=== PATIENT | male | born 1945 | race Caucasian/White ===

== ENCOUNTER 2022-07-05 15:28 | Inpatient (IN) ==
--- NOTE | 2022-07-05 17:11 | XRay Report ---
XR chest 1V not portable CLINICAL HISTORY: Sepsis TECHNIQUE: Single frontal radiograph of the chest was obtained. Comparison: None available at the time of this dictation. FINDINGS: A port catheter is seen. The cardiomediastinal silhouette is normal. The lungs are clear. No evidence of pleural effusion or pneumothorax. IMPRESSION: No acute chest disease. ACT 112: Negative or not required by law. Electronically signed by: Michelet Lomeli M.D. 07/05/2022 5:10 PM
[2022-07-05 18:30] LABS: Basophils # (auto) 0.05 K/uL (0-0.2); Basophils % (auto) 0.3 %; Eosinophils # (auto) 0.01 K/uL (0-0.50); Eosinophils % (auto) 0.1 %; Hematocrit (blood only) 27.3 % (42.0-52.0); Hemoglobin 9.1 g/dl (14.0-18.0); Immature Granulocytes # (auto) 0.28 K/uL (0.01-0.20); Immature Granulocytes % (auto) 1.7 %; Lymphocytes # (auto) 1.05 K/uL (1.2-3.4); Lymphocytes % (auto) 6.3 %; Mean Corpuscular Hemoglobin 29.6 pg (25.0-34.0); Mean Corpuscular Hgb Conc 33.3 g/dL (32.0-36.0); Mean Corpuscular Volume 88.9 fL (80.0-100.0); Mean Platelet Volume 11.4 fL (9.4-12.4); Monocytes # (auto) 1.01 K/uL (0.11-0.59); Monocytes % (auto) 6.1 %; Neutrophils # (auto) 14.29 K/uL (1.40-6.50); Neutrophils % (auto) 85.5 %; Platelet Count 134 K/uL (130-400); RDW Standard Deviation 51.7 fL (36.4-46.3); Red Blood Count 3.07 M/uL (4.70-6.10); White Blood Count 16.69 K/ul (4.8-10.8)
[2022-07-05 18:47] LABS: Alanine Aminotransferase 150 U/L (7-52); Albumin Globulin Ratio 1.1 (0.9-2); Albumin Level 3.8 gm/dl (3.4-5.0); Alkaline Phosphatase 356 U/L (34-104); Anion Gap 10 (3-11); Aspartate Aminotransferase 126 U/L (13-39); BUN Creatinine Ratio 31.9 (10-20); Bilirubin,Total 0.7 mg/dl (0.2-1.0); Blood Urea Nitrogen 52 mg/dl (6-23); Calcium 9.7 mg/dl (8.6-10.3); Carbon Dioxide 24 mmol/L (21-32); Chloride 99 mmol/L (98-107); Est GFR (African American) 46.7 ml/min; Est GFR (Non-African American) 40.3 ml/min; Globulin 3.5 gm/dl (2.5-4.0); Glucose 109 mg/dl (70-99(Fasting)); Magnesium 2.1 mg/dl (1.7-2.4); Sodium 133 mmol/L (136-145); Total Protein 7.3 gm/dl (6.0-8.3)
[2022-07-05] MEDS ORDERED: SODIUM CHLORIDE 0.9% 1000ML 1,000 ML IV SCH (19:00)
[2022-07-05] MEDS ORDERED: cefTRIAXone SODIUM 2,000 MG/70 ML BAG IV STA (19:00)
[2022-07-05] MEDS ORDERED: SODIUM CHLORIDE 0.9% 1000ML 1,000 ML IV ONE ×2 (19:00→19:42)
--- NOTE | 2022-07-05 19:28 | Emergency Department Note ---
Impression & Plan Cellulitis, periorbital, Leukocytosis ED Provider Note INFORMANT: Patient ED PROVIDER(S): Edgar Fritz MD CHIEF COMPLAINT: Eye infection PLAN: Disposition: Admitted Condition: Good Outpatient prescription management: none Referral: None MEDICAL DECISION MAKING: Patient presented because of concerns for eye infection. He was sent from ophthalmology. Patient was evaluated. Clinically he has periorbital cellulitis on the right side. Blood work revealed significant leukocytosis. He has a mild elevation of lactate that was done via protocol. Patient was mildly ta chycardic. He was started on IV Rocephin after blood cultures were done. Sepsis fluids were initiated. Patient also was started on IV vancomycin. CT imaging was performed and did not reveal findings concerning for postseptal cellulitis. Patient also had sinusitis. Further management in the hospital will be necessary. Consultation was made with the [facility] service. Patient was evaluated in the ER and admitted for further management. After review of the information above and other included data, I feel the patient requires further management in the hospital Triage Nursing notes reviewed and agree them. Vital Signs: reviewed and remarkable for borderline low blood pressure Prior /Outside records reviewed: none Differential diagnosis: Cellulitis, abscess, MRSA infection, DVT, necrotizing fasciitis, dermatitis, drug eruption, allergic reaction, as well as other pathologies. Diagnostics, as interpreted by me: ECG: Twelve-lead ECG reveals sinus tachycardia [address] elevation or depression. No PACs or PVCs. Cardiac Monitoring: Cardiac monitoring ordered by me: The patient was placed on continuous cardiac monitoring and observed. It revealed a normal sinus rhythm at 99 beats per minute without ectopy or evidence of dysrhythmia. Medical decision rules: none Imaging studies: Chest x-ray. Findings: A chest x-ray was performed and revealed no pneumothorax, effusion, infiltrate, pulmonary edema, free air under the diaphragm, or wide mediastinum. Impression: No acute disease. CT of the orbits reveals inflammatory change concerning for periorbital cellulitis as well as sinusitis. I refer you to the EMR for further details. HPI: The patient is a 77year old male who presents to the Emergency Room with complaints of right eye infection. This started about 3 to 4 days ago and is worsening. The patient also notes the following associated symptoms, swelling and discomfort around the right eye.He has some blurry vision as well. The patient has taken no medication for relieving factors. Current pain is rated as 0/10. Patient went to ophthalmology and was referred to the ER by Dr. Snowden. Patient has a history of sinus cancer that is in remission. He also notes a history of sinus surgery. He also is undergoing chemotherapy for penile cancer. Pt denies LOC, headache, fevers, chills, diaphoresis, neck pain, chest pain, breathing difficulties, nausea, vomiting, abdominal pain, back pain, melena, weakness, lymphadenopathy, or other complaints. PAST MEDICAL HISTORY: See Below, sinus cancer, penile cancer PAST SURGICAL HISTORY: Port, sinus surgery, see below SOCIAL HISTORY: See Below, retired HOME MEDICATIONS: See Below ALLERGIES: See Below VITALS: See Below PHYSICAL EXAMINATION: GENERAL: Awake, alert, well-appearing, in no distress HENT: Normocephalic, atraumatic. Oropharynx unremarkable. There is mild edema and redness surrounding the right eye. No crepitus. EYES: Sclera non-icteric. Globe and cornea appear normal bilaterally. There is some mild conjunctival erythema on the right side. NECK: Inspection normal. Non-tender. Supple. No nuchal rigidity. FROM. No masses. RESPIRATORY: Clear to auscultation. No wheezes. No rales. Normal respiratory e ffort. CARDIAC: Borderline tachycardic rate. Normal rhythm. No murmurs. No rubs. Extremities warm and well perfused. Pulses equal. No JVD. GI: Soft, non-distended. No tenderness to palpation. No rebound or guarding. No masses. RECTAL: Deferred. MUSCULOSKELETAL: Atraumatic. Chest examination reveals no tenderness. Mediport in the right upper chest. The back is symmetrical on inspection without obvious abnormality. There is no CVA tenderness to palpation. No joint edema. LOWER EXTREMITIES: Calves are equal size bilaterally and non-tender. No edema. No discoloration. NEURO: Normal sensorium. No sensory or motor deficits noted. SKIN: No rash or jaundice noted. Past Med/Surg History Medical History (Updated 07/06/22 @ 13:46 by Boo Le MD) Cancer History of venous thromboembolism Hypertension Surgical History (Updated 07/06/22 @ 00:57 by Kacie Gomez DO) History of pelvic surgery Family History (Updated 07/06/22 @ 00:57 by Kacie M Jason, DO) Other Family history non-contributory Social History Smoking Status: Former smoker Second Hand Exposure: No; Hx Alcohol Use: No Hx Substance Use: No Preferred Language: Nigerian Communication Ability: Effective Tissue Inserter Required: No Beliefs That Will Affect Care: None Current Living Situation: Alone Feels Safe at Home: Yes Safety Concerns: Feels Safe At This Time Assistive Devices: Cane, Glasses and Walker Allergies Allergies Allergy/AdvReac Type Severity Reaction Status Date / Time No Known Allergies Allergy Verified 07/05/22 21:43 Home Meds Home Medications Medication Instructions Recorded Confirmed apixaban 5 mg tablet (Eliquis) 5 mg PO BID 07/05/22 07/05/22 aspirin 81 mg tablet,delayed 81 mg PO DAILY 07/05/22 07/05/22 release clindamycin HCl 300 mg capsule 300 mg PO TID 07/05/22 07/05/22 dexamethasone 4 mg tablet 8 mg PO UD 07/05/22 07/05/22 fluticasone 250 mcg-salmeterol 50 1 inh inhalation BID 07/05/22 07/05/22 mcg/dose blistr powdr for inhalation (Wixela Inhub) lisinopril 2.5 mg tablet 2.5 mg PO QAM 07/05/22 07/05/22 loratadine 10 mg tablet (Claritin) 10 mg PO DAILY 07/05/22 07/05/22 montelukast 10 mg tablet 10 mg PO HS 07/05/22 07/05/22 multivitamin 1 tab PO DAILY 07/05/22 07/05/22 omeprazole 20 mg capsule,delayed 20 mg PO DAILY 07/05/22 07/05/22 release potassium chloride 20 mEq 20 meq PO DAILY 07/05/22 07/05/22 tablet,extended release vit C 250 mg-vit E 90 mg-zinc 40 1 tab PO BID 07/05/22 07/05/22 mg-copper 1 [id number] capsule (PreserVision AREDS-2) Results & Data (ED) Vital Signs Vital Signs - 24 hr 07/05/22 15:43 07/05/22 19:34 Temperature 36.6 C Temperature Source Temporal Artery Scan Pulse Rate 82 108 H Pulse Rhythm Regular Respiratory Rate 18 18 Blood Pressure 101/65 Blood Pressure Mean 77 Pulse Oximetry 97 97 Oxygen Delivery Method Room Air Room Air Sepsis Recent Fever Within 48 Hours No Sepsis New/Unexplained Change in Mental Status No Sepsis Action Taken by Nursing No Action Required Laboratory Data 07/05/22 18:13 07/05/22 18:13 Lab Results 07/05/22 07/05/22 07/05/22 Range/Units 18:13 18:13 18:13 WBC 16.69 H (4.8-10.8) K/ul RBC 3.07 L (4.70-6.10) M/uL Hgb 9.1 L (14.0-18.0) g/dl Hct 27.3 L (42.0-52.0) % MCV 88.9 (80.0-100.0) fL MCH 29.6 (25.0-34.0) pg MCHC 33.3 (32.0-36.0) g/dL RDW Std Deviation 51.7 H (36.4-46.3) fL RDW Coeff of Bebe 16.0 H (11.5-14.5) % Plt Count 134 (130-400) K/uL MPV 11.4 (9.4-12.4) fL Immature Gran % (Auto) 1.7 % Neut % (Auto) 85.5 % Lymph % (Auto) 6.3 % [place] % (Auto) 6.1 % Eos % (Auto) 0.1 % Baso % (Auto) 0.3 % Neut # (Auto) 14.29 H (1.40-6.50) K/uL Lymph # (Auto) 1.05 L (1.2-3.4) K/uL [place] # (Auto) 1.01 H (0.11-0.59) K/uL Eos # (Auto) 0.01 (0-0.50) K/uL Baso # (Auto) 0.05 (0-0.2) K/uL Immature Gran # (Auto) 0.28 H (0.01-0.20) K/uL PT 12.6 H (9.0-12.0) Seconds INR 1.2 H (0.9-1.1) APTT 53.9 H* (21.0-31.0) Seconds PTT Ratio 2.0 Sodium 133 L (136-145) mmol/L Potassium 5.0 (3.5-5.1) mmol/L Chloride 99 (98-107) mmol/L Carbon Dioxide 24 (21-32) mmol/L Anion Gap 10 (3-11) BUN 52 H (6-23) mg/dl Creatinine 1.63 H (0.6-1.4) mg/dl Est Cr Clr Drug Dosing Not Reportable Est GFR ( Amer) 46.7 ml/min Est GFR (Non-Af Amer) 40.3 ml/min BUN/Creatinine Ratio 31.9 H (10-20) Glucose 109 H (70-99(Fasting)) mg/dl Lactate (0.4-2.0) mmol/L Calcium 9.7 (8.6-10.3) mg/dl Magnesium 2.1 (1.7-2.4) mg/dl Total Bilirubin 0.7 (0.2-1.0) mg/dl AST 126 H (13-39) U/L ALT 150 H (7-52) U/L Alkaline Phosphatase 356 H (34-104) U/L Total Protein 7.3 (6.0-8.3) gm/dl Albumin 3.8 (3.4-5.0) gm/dl Globulin 3.5 (2.5-4.0) gm/dl Albumin/Globulin Ratio 1.1 (0.9-2) Procalcitonin (0-0.5) ng/ml SARS-CoV-2, RNA, NAAT (NEGATIVE) 07/05/22 07/05/22 07/05/22 Range/Units 18:13 18:13 20:08 WBC (4.8-10.8) K/ul RBC (4.70-6.10) M/uL Hgb (14.0-18.0) g/dl Hct (42.0-52.0) % MCV (80.0-100.0) fL MCH (25.0-34.0) pg MCHC (32.0-36.0) g/dL RDW Std Deviation (36.4-46.3) fL RDW Coeff of Bebe (11.5-14.5) % Plt Count (130-400) K/uL MPV (9.4-12.4) fL Immature Gran % (Auto) % Neut % (Auto) % Lymph % (Auto) % [place] % (Auto) % Eos % (Auto) % Baso % (Auto) % Neut # (Auto) (1.40-6.50) K/uL Lymph # (Auto) (1.2-3.4) K/uL [place] # (Auto) (0.11-0.59) K/uL Eos # (Auto) (0-0.50) K/uL Baso # (Auto) (0-0.2) K/uL Immature Gran # (Auto) (0.01-0.20) K/uL PT (9.0-12.0) Seconds INR (0.9-1.1) APTT (21.0-31.0) Seconds PTT Ratio Sodium (136-145) mmol/L Potassium (3.5-5.1) mmol/L Chloride (98-107) mmol/L Carbon Dioxide (21-32) mmol/L Anion Gap (3-11) BUN (6-23) mg/dl Creatinine (0.6-1.4) mg/dl Est Cr Clr Drug Dosing Est GFR ( Amer) ml/min Est GFR (Non-Af Amer) ml/min BUN/Creatinine Ratio (10-20) Glucose (70-99(Fasting)) mg/dl Lactate 2.2 H* 1.5 (0.4-2.0) mmol/L Calcium (8.6-10.3) mg/dl Magnesium (1.7-2.4) mg/dl Total Bilirubin (0.2-1.0) mg/dl AST (13-39) U/L ALT (7-52) U/L Alkaline Phosphatase (34-104) U/L Total Protein (6.0-8.3) gm/dl Albumin (3.4-5.0) gm/dl Globulin (2.5-4.0) gm/dl Albumin/Globulin Ratio (0.9-2) Procalcitonin 0.59 H (0-0.5) ng/ml SARS-CoV-2, RNA, NAAT (NEGATIVE) 07/05/22 Range/Units 21:15 WBC (4.8-10.8) K/ul RBC (4.70-6.10) M/uL Hgb (14.0-18.0) g/dl Hct (42.0-52.0) % MCV (80.0-100.0) fL MCH (25.0-34.0) pg MCHC (32.0-36.0) g/dL RDW Std Deviation (36.4-46.3) fL RDW Coeff of Bebe (11.5-14.5) % Plt Count (130-400) K/uL MPV (9.4-12.4) fL Immature Gran % (Auto) % Neut % (Auto) % Lymph % (Auto) % [place] % (Auto) % Eos % (Auto) % Baso % (Auto) % Neut # (Auto) (1.40-6.50) K/uL Lymph # (Auto) (1.2-3.4) K/uL [place] # (Auto) (0.11-0.59) K/uL Eos # (Auto) (0-0.50) K/uL Baso # (Auto) (0-0.2) K/uL Immature Gran # (Auto) (0.01-0.20) K/uL PT (9.0-12.0) Seconds INR (0.9-1.1) APTT (21.0-31.0) Seconds PTT Ratio Sodium (136-145) mmol/L Potassium (3.5-5.1) mmol/L Chloride (98-107) mmol/L Carbon Dioxide (21-32) mmol/L Anion Gap (3-11) BUN (6-23) mg/dl Creatinine (0.6-1.4) mg/dl Est Cr Clr Drug Dosing Est GFR ( Amer) ml/min Est GFR (Non-Af Amer) ml/min BUN/Creatinine Ratio (10-20) Glucose (70-99(Fasting)) mg/dl Lactate (0.4-2.0) mmol/L Calcium (8.6-10.3) mg/dl Magnesium (1.7-2.4) mg/dl Total Bilirubin (0.2-1.0) mg/dl AST (13-39) U/L ALT (7-52) U/L Alkaline Phosphatase (34-104) U/L Total Protein (6.0-8.3) gm/dl Albumin (3.4-5.0) gm/dl Globulin (2.5-4.0) gm/dl Albumin/Globulin Ratio (0.9-2) Procalcitonin (0-0.5) ng/ml SARS-CoV-2, RNA, NAAT NEGATIVE (NEGATIVE) Administered Medications Acetaminophen (Acetaminophen 325 Mg Tab) 650 mg PO Q4H PRN PRN Reason: Pain or Fever Stop: 08/04/22 23:12 Last Admin: 07/07/22 07:50 Dose: 650 mg Documented By: Admin: 07/06/22 22:55 Dose: 650 mg Documented By: Admin: 07/06/22 15:51 Dose: 650 mg Documented By: Admin: 07/06/22 04:33 Dose: 650 mg Documented By: ROBERTA Apixaban (Apixaban 5 Mg Tablet) 5 mg PO BID COUNT INCLUDES THE [facility] Stop: 08/05/22 08:59 Last Admin: 07/07/22 07:49 Dose: 5 mg Documented By: Admin: 07/06/22 21:36 Dose: 5 mg Documented By: Admin: 07/06/22 09:29 Dose: 5 mg Documented By: GILLES Aspirin (Aspirin 81 Mg Ectab) 81 mg PO DAILY COUNT INCLUDES THE [facility] Stop: 08/05/22 08:59 Last Admin: 07/07/22 07:49 Dose: 81 mg Documented By: Admin: 07/06/22 09:29 Dose: 81 mg Documented By: GILLES Atorvastatin Calcium (Atorvastatin 10 Mg Tab) 5 mg PO HS COUNT INCLUDES THE [facility] Stop: 08/05/22 20:59 Last Admin: 07/06/22 21:36 Dose: 5 mg Documented By: ROBERTA Ceftriaxone Sodium 1,000 mg/ (Dextrose) 50 mls @ 100 mls/hr IV Q24H COUNT INCLUDES THE [facility]; Protocol Stop: 07/13/22 19:59 Last Infusion: 07/06/22 23:30 Dose: 0 mls/hr Documented By: Admin: 07/06/22 21:54 Dose: 100 mls/hr Documented By: ROBERTA Lisinopril (Lisinopril 5 Mg Tab) 5 mg PO QAM COUNT INCLUDES THE [facility] Stop: 08/06/22 09:44 Last Admin: 07/07/22 10:21 Dose: 5 mg Documented By: MEGHAN Loratadine (Loratadine 10 Mg Tab) 10 mg PO DAILY COUNT INCLUDES THE [facility] Stop: 08/05/22 08:59 Last Admin: 07/07/22 07:49 Dose: 10 mg Documented By: Admin: 07/06/22 09:30 Dose: 10 mg Documented By: RRR Melatonin (Melatonin 3 Mg Tab) 3 mg PO HS PRN PRN Reason: Sleep Stop: 08/05/22 21:58 Last Admin: 07/06/22 22:50 Dose: 3 mg Documented By: ROBERTA Montelukast Sodium (Montelukast Sodium 10 Mg Tablet) 10 mg PO HS DEBBIE Stop: 08/05/22 20:59 Last Admin: 07/06/22 21:36 Dose: 10 mg Documented By: ROBERTA Pantoprazole Sodium (Pantoprazole 40 Mg Tab) 40 mg PO DAILY DEBBIE Stop: 08/05/22 08:59 Last Admin: 07/07/22 07:48 Dose: 40 mg Documented By: Admin: 07/06/22 09:30 Dose: 40 mg Documented By: RRR Discontinued Medications Sodium Chloride (Nss 1000ml) 1,000 mls @ 999 mls/hr IV .Q1H1M ONE Stop: 07/05/22 20:00 Last Infusion: 07/05/22 21:19 Dose: 0 mls/hr Documented By: [employer]ER Admin: 07/05/22 19:43 Dose: 999 mls/hr Documented By: [employer] TE[employer]ER Sodium Chloride (Nss 1000ml) 1,000 mls @ 125 mls/hr IV .Q8H DEBBIE Stop: 08/04/22 18:59 Last Admin: 07/06/22 03:00 Dose: Not Given Documented By: ROBERTA Ceftriaxone Sodium (Rocephin) 2,000 mg in 70 mls @ 140 mls/hr IV NOW STA Stop: 07/05/22 19:29 Last Infusion: 07/05/22 21:18 Dose: 0 mls/hr Documented By: MIDD[employer] TE[employer]ER Admin: 07/05/22 20:11 Dose: 140 mls/hr Documented By: MIDD[employer] TECH[employer]Y TE[employer]ER Sodium Chloride (Nss 1000ml) 1,000 mls @ 999 mls/hr IV .Q1H1M ONE Stop: 07/05/22 20:42 Last Infusion: 07/06/22 03:00 Dose: 0 mls/hr Documented By: Admin: 07/05/22 21:18 Dose: 999 mls/hr Documented By: [employer] TE[employer]ER Vancomycin HCl 1,250 mg/ (Sodium Chloride) 525 mls @ 200 mls/hr IV NOW ONE Stop: 07/05/22 22:19 Last Admin: 07/05/22 21:18 Dose: 200 mls/hr Documented By: MIDD[employer] TE[employer]ER Sodium Chloride (Nss 1000ml) 1,000 mls @ 125 mls/hr IV .Q8H DEBBIE Stop: 07/06/22 15:44 Last Infusion: 07/06/22 10:17 Dose: 0 mls/hr Documented By: Admin: 07/06/22 07:44 Dose: 125 mls/hr Documented By: Infusion: 07/06/22 07:44 Dose: 125 mls/hr Documented By: Admin: 07/06/22 00:24 Dose: 125 mls/hr Documented By: ROBERTA Vancomycin HCl 1,000 mg/ (Sodium Chloride) 270 mls @ 200 mls/hr IV Q24H DEBBIE; Protocol Stop: 07/13/22 05:59 Last Infusion: 07/07/22 07:30 Dose: 0 mls/hr Documented By: Admin: 07/07/22 06:07 Dose: 200 mls/hr Documented By: Infusion: 07/06/22 07:44 Dose: 0 mls/hr Documented By: Admin: 07/06/22 06:13 Dose: 200 mls/hr Documented By: ROBERTA Lisinopril (Lisinopril 2.5 Mg Tab) 2.5 mg PO QAM DEBBIE Stop: 08/05/22 08:59 Last Admin: 07/07/22 07:48 Dose: 2.5 mg Documented By: Admin: 07/06/22 09:29 Dose: 2.5 mg Documented By: GILLES Melatonin (Melatonin 3 Mg Tab) 6 mg PO HS ONE Stop: 07/06/22 00:25 Last Admin: 07/06/22 02:59 Dose: Not Given Documented By: ROBERTA Menthol (Cough Drop (Sugar Free) Rina 24 Rina/1 Box) 1 rina BUCCAL NOW STA Stop: 07/06/22 00:24 Last Admin: 07/06/22 04:36 Dose: 1 rina Documented By: ROBERTA Imaging Data Radiologist's Impression: Chest X-Ray 07/05/22 15:46 XR chest 1V not portable CLINICAL HISTORY: Sepsis TECHNIQUE: Single frontal radiograph of the chest was obtained. Comparison: None available at the time of this dictation. FINDINGS: A port catheter is seen. The cardiomediastinal silhouette is normal. The lungs are clear. No evidence of pleural effusion or pneumothorax. IMPRESSION: No acute chest disease. ACT 112: Negative or not required by law. Electronically signed by: Michelet Lomeli M.D. 07/05/2022 5:10 PM Discharge Plan Visit Data Chief Complaint: Eye Problems Stated Complaint: EYE CELLULITUS, REFERRED BY PCP ED Provider: Edgar Fritz Discharge Problem: Cellulitis, periorbital, Leukocytosis Patient Disposition: Admitted As Inpatient Discharge Instructions Interventions: ED Discharge Assessment Last Done: 07/05/22 22:45
[2022-07-05 19:30] LABS: INR 1.2 (0.9-1.1); Prothrombin Time 12.6 Seconds (9.0-12.0)
[2022-07-05 19:39] LABS: Partial Thromboplastin Time 53.9 Seconds (21.0-31.0)
[2022-07-05] MEDS ORDERED: VANCOMYCIN CONSULT ACTIVE PRN ×2 (19:42→23:13)
[2022-07-05] MEDS ORDERED: VANCOMYCIN HCL 1,250 MG in SODIUM CHLORIDE 0.9% 500 ML IV ONE (19:42)
--- NOTE | 2022-07-05 21:40 | History & Physical Report ---
Date of Service July 05, 2022 Assessment & Plan (1) Orbital cellulitis: Plan: Extensive pre-and post-septal fat stranding of the orbits right greater than left concerning for infectious etiology. No abscess formation. 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 He is currently on chemotherapy but is uncertain of details. He is concerned about weight loss and nutrition - states that food tastes very poorly since being on this new chemotherapy -Request records from Dr. Cortez - Oncology in [place] -Boost shakes per request (3) Hypertension: Plan: Blood pressure borderline low on arrival in setting of active infection -Hold Lisinopril (4) History of venous thromboembolism: Plan: Remote history of DVT/PE -Continue Apixaban 5mg po BID F/E/N - NSS at 125mL/hr x 2 liters, monitor electrolytes, Regular diet as tolerated Ppx - On Apixaban Code - Full Dispo - Admit to medical with telemetry History of Present Illness Chief Complaint: Orbital cellulitis Primary Care Provider: Ilan Do Capp, DO Denys Mars Is a 77-year-old male with history of chronic sinusitis, COPD, prior VTE and penile cancer presenting with right orbital cellulitis. Patient was seen by ophthalmology on07/01/2022 for routine eye exam. He reported that everything was fine. He was given prescription eyedrops for treatment of eye dryness (uncertain of name). On the morning of 07/03/2022 patient woke with redness and swelling of his right eye.He has also had double vision and pain in the eye.He was seen by ophthalmology again today and was subsequently sent to the emergency room. Patient denies fevers or chills. Denies chest pain, cough, shortness of breath. He does have a mild dull pain in his eye as well as some discomfort associate with eye movement. His eye is red and tearing. He reports double vision as well. He reports diffuse generalized weakness In the ER he is afebrile, blood pressure slightly low, tachycardic at 103bpm. Allergies Allergy/AdvReac Type Severity Reaction Status Date / Time No Known Allergies Allergy Verified 07/05/22 21:43 Home Medications Medication Instructions Recorded Confirmed Type apixaban 5 mg tablet (Eliquis) 5 mg PO BID 07/05/22 07/05/22 History aspirin 81 mg tablet,delayed 81 mg PO DAILY 07/05/22 07/05/22 History release clindamycin HCl 300 mg capsule 300 mg PO TID 07/05/22 07/05/22 History dexamethasone 4 mg tablet 8 mg PO UD 07/05/22 07/05/22 History fluticasone 250 mcg-salmeterol 50 1 inh inhalation BID 07/05/22 07/05/22 History mcg/dose blistr powdr for inhalation (Wixela Inhub) lisinopril 2.5 mg tablet 2.5 mg PO QAM 07/05/22 07/05/22 History loratadine 10 mg tablet (Claritin) 10 mg PO DAILY 07/05/22 07/05/22 History montelukast 10 mg tablet 10 mg PO HS 07/05/22 07/05/22 History multivitamin 1 tab PO DAILY 07/05/22 07/05/22 History omeprazole 20 mg capsule,delayed 20 mg PO DAILY 07/05/22 07/05/22 History release potassium chloride 20 mEq 20 meq PO DAILY 07/05/22 07/05/22 History tablet,extended release vit C 250 mg-vit E 90 mg-zinc 40 1 tab PO BID 07/05/22 07/05/22 History mg-copper 1 [id number]-wdmpeb capsule (PreserVision AREDS-2) Past Med/Surg History Medical History (Updated 07/06/22 @ 00:57 by Kacie Gomez DO) Cancer History of venous thromboembolism Hypertension Surgical History (Updated 07/06/22 @ 00:57 by Kacie Gomez DO) History of pelvic surgery Family History (Updated 07/06/22 @ 00:57 by Kacie Gomez DO) Other Family history non-contributory Social History Smoking Status: Former smoker Feels Safe at Home: Yes Review of Systems Review of Systems: All systems reviewed & are unremarkable except as noted in HPI & below Physical Exam Physical Exam: General: thin male patient resting comfortably, NAD, non-toxic in appearance, AA&O x 4 Skin: warm, dry, intact, no rashes or lesions HEENT: NC/AT, PERRL, right eye red, swollen and tearing, EOMI with pain with eye movement, anicteric sclera, injected conjunctiva, external ear normal to inspection and nontender, nares patent, moist mucus membranes, dentition intact, no oropharyngeal lesions, neck supple, trachea midline, no LAD, no thyromegaly, no JVD Heart: +S1/S2, regular, no m/r/g Lungs: equal air entry bilaterally, no rales/rhonchi/wheezes Abd: +BS, soft, NT/ND, no masses/organomegaly/ascites Ext: warm, 2+ pulses in UE/LE bilaterally, no clubbing/cyanosis or edema Neuro: nonfocal, patient AA&O x 4, speech intact, no facial droop, moving all extremities on command with equal strength 5/5 Results & Data Results & Data Vital Signs (Past 12 Hours) Vital Signs Temp Pulse Pulse Resp BP BP Pulse Ox 07/05/22 21:19 105 H 21 97/52 L 100 07/05/22 20:08 97/64 L 07/05/22 20:08 103 H 17 98 07/05/22 20:00 93 07/05/22 20:00 80/61 L 07/05/22 19:40 109 H 18 100 07/05/22 19:39 80/48 L 07/05/22 19:39 107 H 21 99 07/05/22 19:36 110 H 19 98 07/05/22 19:37 106 H 07/05/22 19:38 108 H 21 80/48 L 99 07/05/22 19:34 108 H 18 97 07/05/22 15:43 36.6 C 82 18 101/65 97 O2 Del Method 07/05/22 21:19 Room Air 07/05/22 20:08 07/05/22 20:08 07/05/22 20:00 07/05/22 20:00 07/05/22 19:40 07/05/22 19:39 07/05/22 19:39 07/05/22 19:36 07/05/22 19:37 07/05/22 19:38 Room Air 07/05/22 19:34 Room Air 07/05/22 15:43 Room Air Laboratory Results Laboratory Results WBC 16.69 K/ul (4.8-10.8) H 07/05/22 18:13 RBC 3.07 M/uL (4.70-6.10) L 07/05/22 18:13 Hgb 9.1 g/dl (14.0-18.0) L 07/05/22 18:13 Hct 27.3 % (42.0-52.0) L 07/05/22 18:13 MCV 88.9 fL (80.0-100.0) 07/05/22 18:13 MCH 29.6 pg (25.0-34.0) 07/05/22 18:13 MCHC 33.3 g/dL (32.0-36.0) 07/05/22 18:13 RDW Std Deviation 51.7 fL (36.4-46.3) H 07/05/22 18:13 RDW Coeff of Bebe 16.0 % (11.5-14.5) H 07/05/22 18:13 Plt Count 134 K/uL (130-400) 07/05/22 18:13 MPV 11.4 fL (9.4-12.4) 07/05/22 18:13 Immature Gran % (Auto) 1.7 % 07/05/22 18:13 Neut % (Auto) 85.5 % 07/05/22 18:13 Lymph % (Auto) 6.3 % 07/05/22 18:13 [place] % (Auto) 6.1 % 07/05/22 18:13 Eos % (Auto) 0.1 % 07/05/22 18:13 Baso % (Auto) 0.3 % 07/05/22 18:13 Neut # (Auto) 14.29 K/uL (1.40-6.50) H 07/05/22 18:13 Lymph # (Auto) 1.05 K/uL (1.2-3.4) L 07/05/22 18:13 [place] # (Auto) 1.01 K/uL (0.11-0.59) H 07/05/22 18:13 Eos # (Auto) 0.01 K/uL (0-0.50) 07/05/22 18:13 Baso # (Auto) 0.05 K/uL (0-0.2) 07/05/22 18:13 Immature Gran # (Auto) 0.28 K/uL (0.01-0.20) H 07/05/22 18:13 PT 12.6 Seconds (9.0-12.0) H 07/05/22 18:13 INR 1.2 (0.9-1.1) H 07/05/22 18:13 APTT 53.9 Seconds (21.0-31.0) H* 07/05/22 18:13 PTT Ratio 2.0 07/05/22 18:13 Sodium 133 mmol/L (136-145) L 07/05/22 18:13 Potassium 5.0 mmol/L (3.5-5.1) 07/05/22 18:13 Chloride 99 mmol/L (98-107) 07/05/22 18:13 Carbon Dioxide 24 mmol/L (21-32) 07/05/22 18:13 Anion Gap 10 (3-11) 07/05/22 18:13 BUN 52 mg/dl (6-23) H 07/05/22 18:13 Creatinine 1.63 mg/dl (0.6-1.4) H 07/05/22 18:13 Est Cr Clr Drug Dosing Not Reportable 07/05/22 18:13 Est GFR ( Amer) 46.7 ml/min 07/05/22 18:13 Est GFR (Non-Af Amer) 40.3 ml/min 07/05/22 18:13 BUN/Creatinine Ratio 31.9 (10-20) H 07/05/22 18:13 Glucose 109 mg/dl (70-99(Fasting)) H 07/05/22 18:13 Lactate 1.5 mmol/L (0.4-2.0) 07/05/22 20:08 Calcium 9.7 mg/dl (8.6-10.3) 07/05/22 18:13 Magnesium 2.1 mg/dl (1.7-2.4) 07/05/22 18:13 Total Bilirubin 0.7 mg/dl (0.2-1.0) 07/05/22 18:13 AST 126 U/L (13-39) H 07/05/22 18:13 ALT 150 U/L (7-52) H 07/05/22 18:13 Alkaline Phosphatase 356 U/L (34-104) H 07/05/22 18:13 Total Protein 7.3 gm/dl (6.0-8.3) 07/05/22 18:13 Albumin 3.8 gm/dl (3.4-5.0) 07/05/22 18:13 Globulin 3.5 gm/dl (2.5-4.0) 07/05/22 18:13 Albumin/Globulin Ratio 1.1 (0.9-2) 07/05/22 18:13 Procalcitonin 0.59 ng/ml (0-0.5) H 07/05/22 18:13 SARS-CoV-2, RNA, NAAT NEGATIVE (NEGATIVE) 07/05/22 21:15 Impressions Chest X-Ray 07/05/22 15:46 XR chest 1V not portable CLINICAL HISTORY: Sepsis TECHNIQUE: Single frontal radiograph of the chest was obtained. Comparison: None available at the time of this dictation. FINDINGS: A port catheter is seen. The cardiomediastinal silhouette is normal. The lungs are clear. No evidence of pleural effusion or pneumothorax. IMPRESSION: No acute chest disease. ACT 112: Negative or not required by law. Electronically signed by: Michelet Lomeli M.D. 07/05/2022 5:[address] 07/05/22 19:00 Exam(s): CT ORBITS EXAM: CT Orbits Without Intravenous Contrast CLINICAL HISTORY: Reason for exam: right cellulitis, sinus CA hx. TECHNIQUE: Axial computed tomography images of the orbits without intravenous contrast. CTDI is 35.41 mGy and DLP is 427.56 mGy-cm. Automated exposure control was utilized for the study. A dose lowering technique was utilized adhering to the principles of ALARA. COMPARISON: No relevant prior studies available. FINDINGS: Orbits: There is extensive preseptal and post-septal fat stranding in the orbits, right greater than left. There is thinning of the lamina papyracea bilaterally. Sinuses: Chronic pansinusitis, status post endoscopic sinus surgery. No air-fluid levels. Bones/joints: There is a moderate right inferior orbital fracture deformity. There is a moderate amount of fluid on the right and small moderate fluid in the left mastoid air cells without evidence of trabecular dehiscence. Remote nasal bone fracture deformities. No acute fracture. Soft tissues: Unremarkable. IMPRESSION: 1. Extensive pre-and post-septal fat stranding of the orbits, right greater than left concerning for infectious etiologies. No definite evidence of abscess formation. 2. Chronic pansinusitis status post endoscopic sinus surgery with thinning the of the lamina propria shaft adjacent to the orbital fat stranding. 3. Remote right inferior orbital fracture deformity. Electronically signed by: Antonietta Maynard MD 07/05/22 22:03 PM Code Status & VTE Plan VTE Prophylaxis Plan VTE Prophylaxis will be ordered: Yes PG Care Time/CCT Total # of Minutes Spent Total Time Spent with Patient: Total time spent is greater than 50% in coordination of care (as documented) at patient's floor/unit and/or counseling patient: Coding Level of Care Code 51769 INT INP/OBS CARE 2MIN Diagnoses Orbital cellulitis H05.019 Cancer C80.1 Hypertension I10 History of venous thromboembolism Z86.718
--- NOTE | 2022-07-05 22:04 | CT Scan Report ---
Exam(s): CT ORBITS EXAM: CT Orbits Without Intravenous Contrast CLINICAL HISTORY: Reason for exam: right cellulitis, sinus CA hx. TECHNIQUE: Axial computed tomography images of the orbits without intravenous contrast. CTDI is 35.41 mGy and DLP is 427.56 mGy-cm. Automated exposure control was utilized for the study. A dose lowering technique was utilized adhering to the principles of ALARA. COMPARISON: No relevant prior studies available. FINDINGS: Orbits: There is extensive preseptal and post-septal fat stranding in the orbits, right greater than left. There is thinning of the lamina papyracea bilaterally. Sinuses: Chronic pansinusitis, status post endoscopic sinus surgery. No air-fluid levels. Bones/joints: There is a moderate right inferior orbital fracture deformity. There is a moderate amount of fluid on the right and small moderate fluid in the left mastoid air cells without evidence of trabecular dehiscence. Remote nasal bone fracture deformities. No acute fracture. Soft tissues: Unremarkable. IMPRESSION: 1. Extensive pre-and post-septal fat stranding of the orbits, right greater than left concerning for infectious etiologies. No definite evidence of abscess formation. 2. Chronic pansinusitis status post endoscopic sinus surgery with thinning the of the lamina propria shaft adjacent to the orbital fat stranding. 3. Remote right inferior orbital fracture deformity. Electronically signed by: Antonietta Maynard MD 07/05/22 22:03 PM
[2022-07-05] MEDS ORDERED: VANCOMYCIN HCL 1,000 MG in SODIUM CHLORIDE 0.9% 250 ML IV SCH (23:13)
[2022-07-05] MEDS ORDERED: ONDANSETRON INJ 2 MG/ML 2 ML VIAL IV PRN (23:13)
[2022-07-06] MEDS ORDERED: COUGH DROP (SUGAR FREE) LOZ 24 LOZ/1 BOX BUCCAL STA (00:23)
[2022-07-06] MEDS: SODIUM CHLORIDE 0.9% 1000ML 1,000 ML IV SCH ×2 (00:24→07:44)
[2022-07-06] MEDS ORDERED: MELATONIN 3 MG TAB PO ONE (00:24)
[2022-07-06] MEDS ORDERED: HEPARIN 100 UNIT/ML 5ML FLUSH FLUSH PRN (02:10)
[2022-07-06] MEDS: ACETAMINOPHEN 325 MG TAB PO PRN ×3 (04:33→22:55)
[2022-07-06] MEDS: VANCOMYCIN HCL 1,000 MG in SODIUM CHLORIDE 0.9% 250 ML IV SCH (06:13)
[2022-07-06 06:45] LABS: Appearance Urine Clear (Clear); Bacteria Urine Automated Negative (Negative); Bilirubin Urine Negative (Negative); Blood Urine Negative (Negative); Color Urine Yellow; Glucose Urine UA Negative (Negative); Ketones Urine Negative (Negative); Leukocyte Esterase Urine Negative (Negative); Nitrite Urine Negative (Negative); Protein Urine Trace (Negative); RBC Urine Automated 0-4 /hpf (0-4); Specific Gravity Urine 1.016 (1.000-1.030); Urobilinogen Urine Negative (Negative); pH Urine 5.5 (4.5-7.5)
[2022-07-06 06:56] LABS: Albumin Level 2.9 gm/dl (3.4-5.0); BUN Creatinine Ratio 32.7 (10-20); Bilirubin Direct 0.1 mg/dl (0-0.2); Bilirubin,Total 0.4 mg/dl (0.2-1.0); Calcium 8.1 mg/dl (8.6-10.3); Creatinine Clr Calc Pharmacy 48.8 ml/min; Est GFR (African American) 72.8 ml/min; Est GFR (Non-African American) 62.8 ml/min; Potassium 4.2 mmol/L (3.5-5.1); Total Protein 5.6 gm/dl (6.0-8.3)
[2022-07-06 07:01] LABS: Hematocrit (blood only) 19.3 % (42.0-52.0); Hemoglobin 6.4 g/dl (14.0-18.0); Mean Corpuscular Hgb Conc 33.2 g/dL (32.0-36.0); Mean Corpuscular Volume 90.6 fL (80.0-100.0); Red Blood Count 2.13 M/uL (4.70-6.10); White Blood Count 9.72 K/ul (4.8-10.8)
[2022-07-06 07:21] LABS: Mean Platelet Volume 10.3 fL (9.4-12.4); Platelet Count 85 K/uL (130-400); Platelet Estimate Decreased (Normal)
[2022-07-06] MEDS ORDERED: SODIUM CHLORIDE 0.9% 250 ML IV PRN (08:13)
[2022-07-06] MEDS: lisinopril 2.5 MG TAB PO SCH (09:29)
[2022-07-06] MEDS: APIXABAN 5 MG TABLET PO SCH ×2 (09:29→21:36)
[2022-07-06] MEDS: ASPIRIN 81 MG ECTAB PO SCH (09:29)
[2022-07-06] MEDS: LORATADINE 10 MG TAB PO SCH (09:30)
[2022-07-06] MEDS: PANTOprazole 40 MG TAB PO SCH (09:30)
--- NOTE | 2022-07-06 12:04 | Pharmacy Report ---
Pharmacy PK ABX Note - Date of Service July 06, 2022 - Assessment and Plan Assessment 77 year old M receiving vancomycin and ceftriaxone for treatment of orbital cellulitis. Blood cultures pending, renal function stable. Day #1 of antimicrobial therapy. Plan Vancomycin * Loading dose: 1250 mg IV x 1 * Maintenance dose: 1000 mg IV every 24 hours * Regimen is predicted to achieve target AUC/IRENE of 400-600 mg/L.hr * Will obtain a level around steady state if vancomycin continued Pharmacy will continue to follow and will adjust dose/frequency as necessary. Thank you. Pharmacy has transitioned to AUC monitoring for vancomycin. AUC/IRENE is the preferred PK/PD target and is associated with decreased risk of nephrotoxicity compared to traditional trough targets.
--- NOTE | 2022-07-06 12:23 | Electrocardiogram Report ---
Test Reason : Blood Pressure : / mmHG Vent. Rate : 115 BPM Atrial Rate : 115 BPM P-R Int : 142 ms QRS Dur : 064 ms QT Int : 310 ms P-R-T Axes : 073 067 073 degrees QTc Int : 428 ms Poor data quality, interpretation may be adversely affected Sinus tachycardia Otherwise normal ECG No previous ECGs available Confirmed by Umer Kirk ([id number]) on 07/06/2022 12:23:06 PM Referred By: REFERRED SELF Confirmed By:Umer Kirk
--- NOTE | 2022-07-06 13:47 | Hospitalist Progress Note ---
Date of Service July 06, 2022 Assessment & Plan (1) Orbital cellulitis: Plan: Bilateral, right greater than left. Probably associated with the chronic sinusitis. Currently on Rocephin and vancomycin. We will consult maxillofacial surgery if this does not improve. CT scan results noted. No abscess formation. 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 He is currently on chemotherapy, last administered approximately [address] Cortez - Oncology in [place]. (3) Hypertension: Plan: Blood pressure borderline low. Holding Lisinopril (4) History of venous thromboembolism: Plan: Remote history of DVT/PE. Currently on Apixaban 5mg po BID (5) Pancytopenia due to antineoplastic chemotherapy: Plan: Hemoglobin has dropped to 6.4 with IV rehydration. He has given consent for blood transfusion. Will administer 2 units packed red blood cells today. Monitor serial labs. No evidence of active GI bleeding Plan Anticipate eventual discharge to home on oral antibiotic Admission and Anticipated Discharge Date Admission Date: July 05, 2022 Subjective Alert and oriented. No distress. Hemoglobin has dropped to 6.4 with IV fluid hydration. Platelet count down to 85,000. I suspect this is due to recent chemotherapy. No obvious GI bleeding. He consents to blood transfusion today. We will follow. He remains on intravenous Rocephin and vancomycin for the periorbital cellulitis. Review of Systems Review of Systems: Constitutional-no fever or chills ENT-no blurred vision, no double vision, no epistaxis, no sore throat Respiratory-no cough, no wheezing, no shortness of breath Cardiac-no palpitations, no chest pain, no syncope GI-no nausea, vomiting, diarrhea, melena, hematochezia -no urinary retention, no urinary incontinence, no dysuria, no hematuria Musculoskeletal-no joint pain, no muscle tenderness Skin-no bruising, no rashes, no pruritus Neuro-no isolated weakness, no paresthesia, no weakness Psych-no depression, no anxiety Physical Exam Physical Exam: General-alert and oriented x3, no fevers, no chills HEENT-head atraumatic and normocephalic, pupils equal and reactive to light, extraocular muscles intact. Cellulitic process apparent in the periorbital regions, right greater than left Neck-no lymphadenopathy or thyromegaly, trachea midline Chest-clear to auscultation percussion. No rales wheezing or rhonchi Cardiac-regular rate and rhythm, normal S1 and S2 Abdomen-normal bowel sounds, nontender, no hepatosplenomegaly Extremities-no cyanosis, clubbing, or edema Neuro-cranial nerves II through XII intact, motor and sensory function within normal limits, strength symmetrical , no focal deficits Psych-normal affect, normal mood Results & Data Results & Data Vital Signs (Past 12 Hours) Vital Signs Temp Pulse Pulse Resp BP BP Pulse Ox 07/06/22 11:05 36.5 C 86 16 122/66 98 07/06/22 12:35 36.9 C 93 H 18 128/74 100 07/06/22 11:35 37 C 86 16 122/69 100 07/06/22 10:52 36.9 C 86 18 125/64 100 07/06/22 10:34 37 C 82 18 118/65 98 07/06/22 08:18 36.8 C 83 18 103/57 L 95 07/06/22 07:38 96 H 07/06/22 02:14 36.8 C 90 16 112/65 96 O2 Del Method 07/06/22 11:05 07/06/22 12:35 07/06/22 11:35 07/06/22 10:52 07/06/22 10:34 07/06/22 08:18 Room Air 07/06/22 07:38 07/06/22 02:14 Room Air Laboratory Results 07/06/22 05:59 07/06/22 05:59 PG Care Time/CCT Total # of Minutes Spent Total Time Spent with Patient: Total time spent is greater than 50% in coordination of care (as documented) at patient's floor/unit and/or counseling patient: Coding Level of Care Code 03664 SUB INP/OBS CARE 3/50MIN Diagnoses Orbital cellulitis H05.019 Cancer C80.1 Hypertension I10 History of venous thromboembolism Z86.718 Pancytopenia due to antineoplastic chemotherapy D61.810; T45.1X5A
[2022-07-06] MEDS: ATORVASTATIN 10 MG TAB PO SCH (21:36)
[2022-07-06] MEDS: MONTELUKAST SODIUM 10 MG TABLET PO SCH (21:36)
[2022-07-06 21:37] LABS: Albumin Level 2.9 gm/dl (3.4-5.0); Bilirubin Direct 0.1 mg/dl (0-0.2); Bilirubin,Total 0.5 mg/dl (0.2-1.0); Total Protein 5.5 gm/dl (6.0-8.3)
[2022-07-06] MEDS: cefTRIAXone SODIUM 1,000 MG in DEXTROSE 5% AD-VAN 50 ML IV SCH (21:54)
[2022-07-06] MEDS: MELATONIN 3 MG TAB PO PRN (22:50)
[2022-07-07] MEDS: VANCOMYCIN HCL 1,000 MG in SODIUM CHLORIDE 0.9% 250 ML IV SCH (06:07)
[2022-07-07 06:47] LABS: Hematocrit (blood only) 26.1 % (42.0-52.0); Hemoglobin 9.1 g/dl (14.0-18.0); Mean Corpuscular Hemoglobin 29.9 pg (25.0-34.0); Mean Corpuscular Hgb Conc 34.9 g/dL (32.0-36.0); Mean Corpuscular Volume 85.9 fL (80.0-100.0); Mean Platelet Volume 9.9 fL (9.4-12.4); Platelet Count 85 K/uL (130-400); RDW Coefficient of Variation 15.6 % (11.5-14.5); RDW Standard Deviation 47.9 fL (36.4-46.3); Red Blood Count 3.04 M/uL (4.70-6.10); White Blood Count 11.97 K/ul (4.8-10.8)
[2022-07-07 07:02] LABS: BUN Creatinine Ratio 22.6 (10-20); Calcium 8.2 mg/dl (8.6-10.3); Creatinine Clr Calc Pharmacy 65.6 ml/min; Est GFR (African American) 98.6 ml/min; Est GFR (Non-African American) 85.1 ml/min; Potassium 4.1 mmol/L (3.5-5.1)
[2022-07-07 07:10] LABS: Basophils # (auto) 0.02 K/uL (0-0.2); Basophils % (auto) 0.2 %; Eosinophils # (auto) 0.01 K/uL (0-0.50); Eosinophils % (auto) 0.1 %; Immature Granulocytes # (auto) 0.18 K/uL (0.01-0.20); Immature Granulocytes % (auto) 1.5 %; Lymphocytes # (auto) 0.44 K/uL (1.2-3.4); Lymphocytes % (auto) 3.7 %; Monocytes # (auto) 0.42 K/uL (0.11-0.59); Monocytes % (auto) 3.5 %
[2022-07-07] MEDS: lisinopril 2.5 MG TAB PO SCH (07:48)
[2022-07-07] MEDS: PANTOprazole 40 MG TAB PO SCH (07:48)
[2022-07-07] MEDS: LORATADINE 10 MG TAB PO SCH (07:49)
[2022-07-07] MEDS: APIXABAN 5 MG TABLET PO SCH ×2 (07:49→21:40)
[2022-07-07] MEDS: ASPIRIN 81 MG ECTAB PO SCH (07:49)
[2022-07-07] MEDS: ACETAMINOPHEN 325 MG TAB PO PRN (07:50)
[2022-07-07] MEDS ORDERED: lisinopril 2.5 MG TAB PO SCH (09:45)
[2022-07-07] MEDS: lisinopril 5 MG TAB PO SCH (10:21)
--- NOTE | 2022-07-07 10:30 | Pharmacy Report ---
Pharmacy PK ABX Note - Date of Service July 07, 2022 - Assessment and Plan Assessment 77 year old M receiving vancomycin and ceftriaxone for treatment of orbital cellulitis. Blood cultures negative at 24h. Day #2 of antimicrobial therapy. 07/07: Given improving renal function, will increase vancomycin to 1500mg IV q24h. 1gm IV q24h predicted to achieve SS AUC 381mg/L.hr which is subtherapeutic. Plan Vancomycin * Maintenance dose: Increase to 1500 mg IV every 24 hours to begin tonight * Regimen is predicted to achieve target AUC/IRENE of 400-600 mg/L.hr * Will obtain a level around steady state Pharmacy will continue to follow and will adjust dose/frequency as necessary. Thank you. Pharmacy has transitioned to AUC monitoring for vancomycin. AUC/IRENE is the preferred PK/PD target and is associated with decreased risk of nephrotoxicity compared to traditional trough targets.
--- NOTE | 2022-07-07 12:33 | Hospitalist Progress Note ---
Date of Service July 07, 2022 Assessment & Plan (1) Orbital cellulitis: Plan: Bilateral, right greater than left. Probably associated with the chronic sinusitis. Currently on Rocephin and vancomycin. Improving. Diplopia has resolved. CT scan results noted. No abscess formation. 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 He is currently on chemotherapy, last administered approximately [address] Cortez - Oncology in [place]. (3) Hypertension: Plan: Blood pressure is now elevated. Lisinopril dosage uptitrated today, 07/07 (4) History of venous thromboembolism: Plan: Remote history of DVT/PE. Currently on Apixaban 5mg po BID (5) Pancytopenia due to antineoplastic chemotherapy: Plan: Hemoglobin dropped to 6.4 with IV rehydration. He received 2 units packed red blood cells and hemoglobin is now 9.1. Monitor serial labs. No evidence of active GI bleeding Plan Anticipate eventual discharge to home on oral antibiotic when afebrile Admission and Anticipated Discharge Date Admission Date: July 05, 2022 Subjective Alert and oriented. No acute distress. Diplopia has resolved. He still has intermittent fevers however. Hemoglobin improved to 9.1 after transfusion. Blood cultures obtained on admission remain negative. He remains on intravenous Rocephin and vancomycin Review of Systems Review of Systems: Constitutional-no fever or chills ENT-no blurred vision, no double vision, no epistaxis, no sore throat Respiratory-no cough, no wheezing, no shortness of breath Cardiac-no palpitations, no chest pain, no syncope GI-no nausea, vomiting, diarrhea, melena, hematochezia -no urinary retention, no urinary incontinence, no dysuria, no hematuria Musculoskeletal-no joint pain, no muscle tenderness Skin-no bruising, no rashes, no pruritus Neuro-no isolated weakness, no paresthesia, no weakness Psych-no depression, no anxiety Physical Exam Physical Exam: General-alert and oriented x3, no fevers, no chills HEENT-head atraumatic and normocephalic, pupils equal and reactive to light, extraocular muscles intact. Cellulitic process apparent in the periorbital regions, right greater than left, has improved. No diplopia Neck-no lymphadenopathy or thyromegaly, trachea midline Chest-clear to auscultation percussion. No rales wheezing or rhonchi Cardiac-regular rate and rhythm, normal S1 and S2 Abdomen-normal bowel sounds, nontender, no hepatosplenomegaly Extremities-no cyanosis, clubbing, or edema Neuro-cranial nerves II through XII intact, motor and sensory function within normal limits, strength symmetrical , no focal deficits Psych-normal affect, normal mood Results & Data Results & Data Vital Signs (Past 12 Hours) Vital Signs Temp Pulse Pulse Resp BP BP Pulse Ox 07/07/22 11:25 36.9 C 93 H 18 92/57 L 97 07/07/22 10:02 38.1 C H 07/07/22 07:40 39.4 C H 107 H 17 156/78 H 95 07/07/22 07:05 99 H 07/07/22 03:30 38 C H 101 H 16 152/65 H 99 O2 Del Method 07/07/22 11:25 Room Air 07/07/22 10:02 07/07/22 07:40 Room Air 07/07/22 07:05 07/07/22 03:30 Room Air Laboratory Results 07/07/22 05:57 07/07/22 05:57 PG Care Time/CCT Total # of Minutes Spent Total Time Spent with Patient: Total time spent is greater than 50% in coordination of care (as documented) at patient's floor/unit and/or counseling patient: Coding Level of Care Code 30758 SUB INP/OBS CARE 3/50MIN Diagnoses Orbital cellulitis H05.019 Cancer C80.1 Hypertension I10 History of venous thromboembolism Z86.718 Pancytopenia due to antineoplastic chemotherapy D61.810; T45.1X5A
[2022-07-07] MEDS: cefTRIAXone SODIUM 1,000 MG in DEXTROSE 5% AD-VAN 50 ML IV SCH (19:38)
[2022-07-07] MEDS: MONTELUKAST SODIUM 10 MG TABLET PO SCH (21:40)
[2022-07-07] MEDS: ATORVASTATIN 10 MG TAB PO SCH (21:40)
[2022-07-07] MEDS: VANCOMYCIN HCL 1,500 MG in SODIUM CHLORIDE 0.9% 500 ML IV SCH (21:46)
[2022-07-07] MEDS: MELATONIN 3 MG TAB PO PRN (21:46)
[2022-07-08 07:24] LABS: Basophils # (auto) 0.02 K/uL (0-0.2); Basophils % (auto) 0.2 %; Eosinophils # (auto) 0.02 K/uL (0-0.50); Eosinophils % (auto) 0.2 %; Hematocrit (blood only) 25.8 % (42.0-52.0); Hemoglobin 8.8 g/dl (14.0-18.0); Immature Granulocytes # (auto) 0.08 K/uL (0.01-0.20); Lymphocytes # (auto) 0.62 K/uL (1.2-3.4); Lymphocytes % (auto) 7.6 %; Mean Corpuscular Hemoglobin 29.6 pg (25.0-34.0); Mean Corpuscular Hgb Conc 34.1 g/dL (32.0-36.0); Mean Corpuscular Volume 86.9 fL (80.0-100.0); Mean Platelet Volume 11.6 fL (9.4-12.4); Monocytes # (auto) 0.49 K/uL (0.11-0.59); Neutrophils # (auto) 6.92 K/uL (1.40-6.50); Platelet Count 101 K/uL (130-400); RDW Coefficient of Variation 15.5 % (11.5-14.5); Red Blood Count 2.97 M/uL (4.70-6.10); White Blood Count 8.15 K/ul (4.8-10.8)
[2022-07-08 07:37] LABS: BUN Creatinine Ratio 22.1 (10-20); Calcium 8.2 mg/dl (8.6-10.3); Creatinine Clr Calc Pharmacy 71.6 ml/min; Est GFR (African American) 102.2 ml/min; Est GFR (Non-African American) 88.1 ml/min; Potassium 3.7 mmol/L (3.5-5.1)
[2022-07-08] MEDS: lisinopril 5 MG TAB PO SCH (08:10)
[2022-07-08] MEDS: ASPIRIN 81 MG ECTAB PO SCH (08:10)
[2022-07-08] MEDS: APIXABAN 5 MG TABLET PO SCH (08:10)
[2022-07-08] MEDS: PANTOprazole 40 MG TAB PO SCH (08:11)
[2022-07-08] MEDS: LORATADINE 10 MG TAB PO SCH (08:11)
[2022-07-08] MEDS ORDERED: OPTIRAY 350 100ml IV ONE (10:09)
--- NOTE | 2022-07-08 11:06 | CT Scan Report ---
CT SCAN OF THE ORBITS WITH IV CONTRAST CLINICAL HISTORY: Follow-up orbital cellulitis. Fever. COMPARISON STUDY: CT scan of the orbits dated 07/05/2022. TECHNIQUE: High-resolution CT scan of the orbits is performed following the IV administration of 90 c c of Optiray 350. Images were reviewed in the axial, sagittal, and coronal planes. IV contrast was ad ministered without complication. A dose lowering technique was utilized adhering to the principles of ALARA. CT DOSE: 462.68 mGy.cm FINDINGS: The skeletal structures are osteopenic. The bony orbits are intact. The ocular globes are i ntact, noting bilateral ocular lens implants in place. No proptosis is seen. The extraocular muscles are normal and symmetric. There is significant inflammation and abnormal soft tissue seen within the extraconal fat in the medial orbits bilaterally, right greater than left. There is also inflammation of the intraconal fat, seen on the right. A pocket of fluid is seen in the extraconal fat of the medi al right orbit on axial image #53. This measures 1.2 x 1.7 x 0.8 cm. A smaller similar-appearing carrie ection is seen within the anterior extraconal fat on the left on image #57. This measures 0.9 x 0.9 x 0.5 cm. These likely represent small abscesses. Tiny foci of gas are present within the medial left orbit on image #58 with surrounding phlegmonous change. There is evidence of previous perinasal sinus surgery. There is complete opacification of the left frontal sinus, with subtotal opacification of t he maxillary antra, the sphenoid sinuses, and the anterior/superior aspects of the ethmoid resection cavity. Thickening and sclerosis of the sinus ayala indicates chronicity. There are bilateral mastoid effusions, right larger than left. The visualized brain parenchyma is normal in appearance noting ag e-related involutional change. There is no evidence of intracranial extension of paranasal sinus dise ase/extra-axial collection. There is periorbital inflammation seen bilaterally, left greater than rig ht, as well as supraorbital inflammation. This likely represents cellulitis. No abscess is seen withi n the subcutaneous soft tissues. The visualized dural sinuses are patent. IMPRESSION: 1. Again seen are findings of bilateral orbital cellulitis. This has likely worsened as compared to t 07/05/2022 examination. 2. There is loculated fluid/phlegmonous change seen within the medial orbit bilaterally, right greate r than left. This is highly suspicious for bilateral abscess formation. 3. Severe paranasal sinus disease as above. This likely represents the underlying etiology of infecti on. 4. There is evidence of periorbital cellulitis bilaterally, left greater than right. This also appear s worsened from previous. ACT 112: Negative or not required by law. Dictated: 07/08/2022 10:37 AM Transcribed: 07/08/2022 11:04 AM Raghu [id number] [email or web address] Electronically signed by: Patrick Michael M.D. 07/08/2022 11:05 AM
[2022-07-08] MEDS: ACETAMINOPHEN 325 MG TAB PO PRN ×2 (11:33→15:21)
[2022-07-08] MEDS: SODIUM CHLORIDE 0.9% 1000ML 1,000 ML IV SCH ×2 (11:34→23:12)
[2022-07-08] MEDS: metroNIDAZOLE 500 MG/100 ML BAG IV SCH ×2 (11:48→17:50)
--- NOTE | 2022-07-08 14:19 | Discharge Summary ---
Date of Service July 08, 2022 Admission HPI Per Admitting Provider Denys Mars Is a 77-year-old male with history of chronic sinusitis, COPD, prior VTE and penile cancer presenting with right orbital cellulitis. Patient was seen by ophthalmology on07/01/2022 for routine eye exam. He reported that everything was fine. He was given prescription eyedrops for treatment of eye dryness (uncertain of name). On the morning of 07/03/2022 patient woke with redness and swelling of his right eye.He has also had double vision and pain in the eye.He was seen by ophthalmology again today and was subsequently sent to the emergency room. Patient denies fevers or chills. Denies chest pain, cough, shortness of breath. He does have a mild dull pain in his eye as well as some discomfort associate with eye movement. His eye is red and tearing. He reports double vision as well. He reports diffuse generalized weakness In the ER he is afebrile, blood pressure slightly low, tachycardic at 103bpm. Principal Diagnosis Orbital cellulitis/abscess Acute sinusitis Sepsis Discharge Exam Constitutional WD/WN, vitals as above Eyes bilat periorbital erythema and edema, no conjunctival erythema or scleral injection EOMI without diplopia, no pain with EOM movements PERRLA no ttp over face or forehead no cervical or preauricular MARIELLA Respiratory normal respiratory effort Auscultation: lungs clear to auscultation bilaterally Cardiovascular RRR, no murmur, no edema Gastrointestinal (Abdomen) normal bowel sounds, soft, nontender, no hepatosplenomegaly Neurologic PERRL, EOMI, accommodation nl, no face palsy, no dysarthria Psychiatric A+Ox3, euthymic affect Discharge Data Allergies Allergy/AdvReac Type Severity Reaction Status Date / Time No Known Allergies Allergy Verified 07/05/22 21:43 Consultations 07/05/22 21:02 ED Decision to Admit Stat 07/06/22 00:53 Consult Ophthalmology Routine Ordered Studies 07/05/22 19:00 CT orbit BI wo con Stat 07/08/22 08:51 CT orbit BI w con Urgent Hospital Course (1) Orbital cellulitis: Bilateral, right greater than left. Probably associated with sinusitis. Currently on Rocephin and vancomycin and diplopia has resolved. However, on hospital day #3, continues to spike fevers higher than previous, has some intermittent headache--> repeated orbital CT and now with progression to bila R>L abscesses in medial orbital regions in extraconal fat with tiny foci of gas Discussed with Ophthalmology juvenile detention officer here, Dr. Swartz, who recommended consultation with Orbital Surgeon at [place] Discussed care with [facility] to include ENT, Ophthalmology (who then d/w Oculoplastics), and the accepting physician is Dr. Franks of the hospitalist service. 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 Cortez - Oncology in [place]. s/p penectomy, able to void on own, no catheter in place (4) Hypertension: Blood pressure was elevated. Lisinopril dosage uptitrated to 5mg daily (5) History of venous thromboembolism: Remote history of DVT/PE. Currently on Apixaban 5mg po BID-HOLD now for surgical drainage of sinuses and orbital abscess (6) Pancytopenia due to antineoplastic chemotherapy: Hemoglobin dropped to 6.4 with IV rehydration and also recent chemotherapy He received 2 units packed red blood cells and hemoglobin is now stable at 89.8 Platelets coming up to 101 from 85-could be from chemo vs sepsis-follow CBC No evidence of active GI bleeding or bleeding from anywhere haptoglobin pending at rene of discharge (7) Elevated transaminase level: AST,ALT, and Alk phos all elevated for hte last month--> possible chemo side effect? no abd pains or evidence of liver issues follow LFTs after transfer Plan Dispo-transfer to [facility] when bed [facility] Total Time Total Time Spent Total Time Spent (In Minutes): 90 min Discharge Plan Discharge Items Patient Disposition: Transfer Acute Care Hospital Reason For Visit: ORBITAL CELLULITIS Discharge Diagnosis: Bilateral Orbital cellulitis/abscess History of T-cell lymphoma of sinuses Condition on Discharge: Serious Activity: As commented below Bathing: No limitations Exercise/Sports: As tolerated Non-emergency contact: Primary Care Provider and Surgeon Call non-emergency contact if: you have any medication questions, your symptoms worsen and your pain is not controlled Follow-up/Referrals: Ilan Arredondo, [Primary Care Provider] - Diet: Heart Healthy Addtl Attending Provider Instructions: Transferred to [facility] Pending Studies at Discharge: Yes Studies:: Final blood cultures-no growth to date Stand-Alone Forms: My [facility] Skilled Items Patient informed of condition?: Yes DNR: No Discharge Level of Care: Other Communicable Disease: No Discharge Prognosis: Deteriorating Lines: Peripheral IV Urinary Catheter: No Medications and DC Order Prescriptions: New atorvastatin 10 mg Tablet 5 mg PO HS Qty: 15 0RF lisinopril [Zestril] 5 mg Tablet 5 mg PO QAM Qty: 30 0RF Continued omeprazole 20 mg capsule,delayed release(DR/EC) 20 mg PO DAILY Eliquis 5 mg tablet 5 mg PO BID aspirin [Aspir-81] 81 mg Tablet,Delayed Release (Dr/Ec) 81 mg PO DAILY multivitamin [Multiple Vitamin] Tablet 1 tab PO DAILY loratadine [Claritin] 10 mg Tablet 10 mg PO DAILY dexamethasone 4 mg tablet 8 mg PO UD Rx Instructions: TAKE TWO TABLETS WITH EVENING MEAL THE NIGHT BEFORE CHEMO TREATMENT- DO THIS EVERY THREE WEEKS. montelukast 10 mg tablet 10 mg PO HS potassium chloride 20 mEq tablet extended release 20 meq PO DAILY fluticasone propion-salmeterol [Wixela Inhub] 250-50 mcg/dose blister with device 1 inh INHALATION BID PreserVision AREDS-2 250-90-40-1 mg Capsule 1 tab PO BID Discontinued clindamycin HCl 300 mg capsule 300 mg PO TID Rx Instructions: BEGIN 06/28/22 X 7 DAYS lisinopril 2.5 mg tablet 2.5 mg PO QAM Discharge Orders: Discharge Order (Routine); Ordered 07/08/22 Ordered By: Mercedes Galloway Admission Data Admit Date/Time: 07/05/22 21:39 Attending Provider: Mercedes Galloway Admit Provider: Kacie Gomez Primary Care Provider: Ilan Arredondo Other Providers: Kacie Gomez ; Donald Swartz ; Umer Sanchez ; Isi,Marques A Coding Level of Care Code 99398 INP/OBS DISCH >30 MIN Diagnoses Orbital cellulitis H05.019 Sepsis A41.9 Cancer C80.1 Hypertension I10 History of venous thromboembolism Z86.718 Pancytopenia due to antineoplastic chemotherapy D61.810; T45.1X5A Elevated transaminase level R74.01
[2022-07-08] MEDS: cefTRIAXone SODIUM 1,000 MG in DEXTROSE 5% AD-VAN 50 ML IV SCH (22:44)
[2022-07-08] MEDS: MONTELUKAST SODIUM 10 MG TABLET PO SCH (23:11)
[2022-07-08] MEDS: ATORVASTATIN 10 MG TAB PO SCH (23:11)
[2022-07-08] MEDS: VANCOMYCIN HCL 1,500 MG in SODIUM CHLORIDE 0.9% 500 ML IV SCH (23:12)
[2022-07-09] MEDS: metroNIDAZOLE 500 MG/100 ML BAG IV SCH ×3 (02:24→17:15)
[2022-07-09 06:20] LABS: Basophils # (auto) 0.03 K/uL (0-0.2); Basophils % (auto) 0.4 %; Eosinophils # (auto) 0.03 K/uL (0-0.50); Eosinophils % (auto) 0.4 %; Hematocrit (blood only) 25.1 % (42.0-52.0); Hemoglobin 8.5 g/dl (14.0-18.0); Immature Granulocytes # (auto) 0.07 K/uL (0.01-0.20); Lymphocytes # (auto) 0.42 K/uL (1.2-3.4); Lymphocytes % (auto) 6.1 %; Mean Corpuscular Hemoglobin 30.2 pg (25.0-34.0); Mean Corpuscular Hgb Conc 33.9 g/dL (32.0-36.0); Mean Corpuscular Volume 89.3 fL (80.0-100.0); Mean Platelet Volume 10.3 fL (9.4-12.4); Monocytes # (auto) 0.58 K/uL (0.11-0.59); Monocytes % (auto) 8.4 %; Neutrophils # (auto) 5.79 K/uL (1.40-6.50); Neutrophils % (auto) 83.7 %; Platelet Count 96 K/uL (130-400); RDW Coefficient of Variation 15.6 % (11.5-14.5); RDW Standard Deviation 50.2 fL (36.4-46.3); Red Blood Count 2.81 M/uL (4.70-6.10); White Blood Count 6.92 K/ul (4.8-10.8)
[2022-07-09 06:42] LABS: BUN Creatinine Ratio 30.3 (10-20); Creatinine Clr Calc Pharmacy 83.5 ml/min; Est GFR (African American) 108.8 ml/min; Est GFR (Non-African American) 93.9 ml/min; Potassium 3.4 mmol/L (3.5-5.1)
[2022-07-09] MEDS: lisinopril 5 MG TAB PO SCH (08:35)
[2022-07-09] MEDS: PANTOprazole 40 MG TAB PO SCH (08:35)
[2022-07-09] MEDS: ASPIRIN 81 MG ECTAB PO SCH (08:36)
[2022-07-09] MEDS: LORATADINE 10 MG TAB PO SCH (08:57)
[2022-07-09] MEDS ORDERED: POTASSIUM CHLORIDE CRTAB 20 MEQ TABCR PO STA (10:04)
[2022-07-09] MEDS: VANCOMYCIN HCL 1,000 MG in SODIUM CHLORIDE 0.9% 250 ML IV SCH ×2 (10:45→21:57)
--- NOTE | 2022-07-09 14:17 | Pharmacy Report ---
Pharmacy PK ABX Note - Date of Service July 09, 2022 - Assessment and Plan Assessment 77 year old M receiving vancomycin and ceftriaxone for treatment of orbital cellulitis. Blood cultures negative at 24h. Day #2 of antimicrobial therapy. 07/07: Given improving renal function, will increase vancomycin to 1500mg IV q24h. 1gm IV q24h predicted to achieve SS AUC 381mg/L.hr which is subtherapeutic. 07/06: Random vancomycin level drawn this morning indicates slightly suboptimal vancomycin dosing, which makes sense in the setting of continually improving renal function. Expect that patient's SCr is at baseline at this point. Dose increased today to achieve target AUC. Plan Vancomycin * Maintenance dose: Increase to vanc 1000 mg IV every 12 hours * Regimen is predicted to achieve target AUC/IRENE of 400-600 mg/L.hr * No further levels have been ordered at this time. If patient remains on vanc therapy, will consider the need for additional monitoring in 2-3 days. Pharmacy will continue to follow and will adjust dose/frequency as necessary. Thank you. Pharmacy has transitioned to AUC monitoring for vancomycin. AUC/IRENE is the preferred PK/PD target and is associated with decreased risk of nephrotoxicity compared to traditional trough targets.
[2022-07-09] MEDS: MONTELUKAST SODIUM 10 MG TABLET PO SCH (20:00)
[2022-07-09] MEDS: ATORVASTATIN 10 MG TAB PO SCH (20:01)
[2022-07-09] MEDS: cefTRIAXone SODIUM 1,000 MG in DEXTROSE 5% AD-VAN 50 ML IV SCH (20:02)
[2022-07-09] MEDS: MELATONIN 3 MG TAB PO PRN (20:12)
--- NOTE | 2022-07-09 20:55 | Hospitalist Progress Note ---
Date of Service July 09, 2022 Assessment & Plan (1) Orbital cellulitis: Plan: Bilateral, right greater than left. Probably associated with sinusitis. Diplopia has resolved, but still has some residual "weird" visual disturbance intermittently that he cannot describe. Was initially placed on ceftriaxone and Vanco but on hospital day #3, continued to spike fevers higher than previous, has some intermittent headache--> repeated orbital CT showed progression to bilat R>L abscesses in medial orbital regions in extraconal fat with tiny foci of gas Discussed with Ophthalmology correctional medicine physician here, Dr. Swartz, who recommended consultation with Orbital Surgeon at [place] Discussed care with [facility] to include ENT, Ophthalmology (who then d/w Oculoplastics), and the accepting physician is Dr. Franks of the hospitalist service. 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 Cortez - Oncology in [place]. s/p penectomy, able to void on own, no catheter in place (4) Hypertension: Plan: Blood pressure was elevated. Lisinopril dosage uptitrated to 5mg daily and is improved (5) History of venous thromboembolism: Plan: Remote history of DVT/PE. Currently on Apixaban 5mg po BID-HOLD now for surgical drainage of sinuses and orbital abscess (6) Pancytopenia due to antineoplastic chemotherapy: Plan: Hemoglobin dropped to 6.4 with IV rehydration and also recent chemotherapy He received 2 units packed red blood cells and hemoglobin is now stable at 8.5 Platelets coming up to 96-101 from 85-could be from chemo vs sepsis-follow CBC No evidence of active GI bleeding or bleeding from anywhere haptoglobin pending Follow CBC (7) Elevated transaminase level: Plan: AST,ALT, and Alk phos all elevated for the last month--> possible chemo side effect? no abd pains or evidence of liver issues follow LFTs Plan Dispo-transfer to [facility] when bed available Admission and Anticipated Discharge Date Admission Date: July 05, 2022 Subjective Having some blurry vision and vision that "just feels weird" at times. No headache. No fever today so far. Anxious to be transferred. Tele with NSR, rates 80-90s Physical Exam Constitutional: WD/WN, vitals as above Eyes: bilat periorbital erythema and edema, no conjunctival erythema or scleral injection EOMI without diplopia, no pain with EOM movements PERRLA no ttp over face or forehead no cervical or preauricular MARIELLA Respiratory: normal respiratory effort Auscultation: lungs clear to auscultation bilaterally Cardiovascular: RRR, no murmur, no edema Gastrointestinal (Abdomen): normal bowel sounds, soft, nontender, no hepatosplenomegaly Neurologic: PERRL, EOMI, accommodation nl, no face palsy, no dysarthria Psychiatric: A+Ox3, euthymic affect Results & Data Results & Data Vital Signs (Past 12 Hours) Vital Signs Temp Pulse Pulse Resp BP Pulse Ox O2 Del Method 07/09/22 18:40 36.6 C 60 18 144/82 H 93 Room Air 07/09/22 15:56 83 07/09/22 15:09 36.6 C 98 H 20 120/62 99 Room Air 07/09/22 10:34 36.9 C 82 16 116/67 98 Room Air Laboratory Results CBC, BMP, and BCxs reviewed PG Care Time/CCT Total # of Minutes Spent Total Time Spent with Patient: Total time spent is greater than 50% in coordination of care (as documented) at patient's floor/unit and/or counseling patient: Coding Level of Care Code 77936 SUB INP/OBS CARE 2/35MIN Diagnoses Orbital cellulitis H05.019 Sepsis A41.9 Cancer C80.1 Hypertension I10 History of venous thromboembolism Z86.718 Pancytopenia due to antineoplastic chemotherapy D61.810; T45.1X5A Elevated transaminase level R74.01
[2022-07-10] MEDS: metroNIDAZOLE 500 MG/100 ML BAG IV SCH ×2 (01:07→08:20)
[2022-07-10] MEDS: ACETAMINOPHEN 325 MG TAB PO PRN (04:02)
[2022-07-10 06:58] LABS: Basophils # (auto) 0.02 K/uL (0-0.2); Basophils % (auto) 0.5 %; Eosinophils # (auto) 0.01 K/uL (0-0.50); Eosinophils % (auto) 0.2 %; Hematocrit (blood only) 25.5 % (42.0-52.0); Hemoglobin 8.5 g/dl (14.0-18.0); Immature Granulocytes # (auto) 0.04 K/uL (0.01-0.20); Lymphocytes # (auto) 0.19 K/uL (1.2-3.4); Lymphocytes % (auto) 4.6 %; Mean Corpuscular Hemoglobin 29.4 pg (25.0-34.0); Mean Corpuscular Hgb Conc 33.3 g/dL (32.0-36.0); Mean Corpuscular Volume 88.2 fL (80.0-100.0); Mean Platelet Volume 11.2 fL (9.4-12.4); Monocytes # (auto) 0.29 K/uL (0.11-0.59); Neutrophils # (auto) 3.57 K/uL (1.40-6.50); Neutrophils % (auto) 86.7 %; Platelet Count 106 K/uL (130-400); RDW Coefficient of Variation 15.6 % (11.5-14.5); RDW Standard Deviation 49.4 fL (36.4-46.3); Red Blood Count 2.89 M/uL (4.70-6.10); White Blood Count 4.12 K/ul (4.8-10.8)
[2022-07-10 07:32] LABS: Albumin Level 2.8 gm/dl (3.4-5.0); BUN Creatinine Ratio 17.3 (10-20); Bilirubin,Total 0.3 mg/dl (0.2-1.0); Calcium 7.9 mg/dl (8.6-10.3); Est GFR (African American) 100.1 ml/min; Est GFR (Non-African American) 86.3 ml/min; Globulin 2.7 gm/dl (2.5-4.0); Magnesium 1.4 mg/dl (1.7-2.4); Potassium 3.3 mmol/L (3.5-5.1); Total Protein 5.5 gm/dl (6.0-8.3)
[2022-07-10] MEDS: lisinopril 5 MG TAB PO SCH (07:47)
[2022-07-10] MEDS: LORATADINE 10 MG TAB PO SCH (08:19)
[2022-07-10] MEDS: ASPIRIN 81 MG ECTAB PO SCH (08:19)
[2022-07-10] MEDS: PANTOprazole 40 MG TAB PO SCH (08:19)
[2022-07-10] MEDS ORDERED: POTASSIUM CHLORIDE CRTAB 20 MEQ TABCR PO STA (08:43)
[2022-07-10] MEDS ORDERED: PIPERACILLIN/TAZOBACTAM 3.375 GM (over 30 mins) IV ONE (09:15)
[2022-07-10] MEDS: VANCOMYCIN HCL 1,000 MG in SODIUM CHLORIDE 0.9% 250 ML IV SCH (09:28)
[2022-07-10] MEDS: MAGNESIUM SULFATE / D5W 1 GM/100 ML BAG IV SCH ×2 (09:29→11:10)
[2022-07-10] MEDS ORDERED: PIPERACILLIN/TAZOBACTAM 3.375 GM in DEXTROSE 5% 100 ML IV SCH (14:00)
--- NOTE | 2022-07-10 15:26 | Infectious Disease Consult ---
Date of Consultation July 10, 2022 Assessment & Plan (1) Orbital cellulitis: #orbital cellulitis -in setting of immunocompromise with underlying recurrent T-cell lymphoma. pt also noted to have h/o prior sinus involvement, currently penile involvement. On CHOP -pt has empirically been on CTX/metro/vanco IV -admission CT orbits without IV contrast did not show abscess -pt with improvement noted clinically but still intermittently febrile -Orbital CT was repeated 07/08 with IV contrast and showed bilateral orbital cellulitis, likely worsened compared to 07/05 and loculated fluid/phlegmonous change within the medial orbit bilaterally, right greater than left, highly suspicious for bilateral abscess. -Patient was accepted for transfer to [facility] for intervention. He is awaiting transfer. -07/05 blood cultures are no growth to date. 07/08 blood cultures are no growth to date. -pt reports significant improvement with resolution of pain and vision changes #KALEN -elevated cr present on admission, has normalized Plan Rec: Had discussed with primary team this AM re: empiric expansion of CTX/metronidazole to zosyn and continuing vanco IV since renal function has normalized. However after seeing patient, who reports significant improvement, it may be that intermittent asymptomatic fevers will not be altered by abx- may be due to abscesses that require intervention or are due to underlying maligna ncy. Can continue zosyn 4.5 g IV q8 and vancomycin (with pharmacy following for dosing) for now with close monitoring of serum cr. Consultation Information Consultation was provided via telemedicine using two-way real-time interactive telecommunication between the patient and the telemedicine provider. For the duration of the visit, the provider was performing the assessment from a different facility than the patient. This includesuse of bluetooth stethoscope forauscultationperformed by the telepresenter that the telemedicine provider can hear if described in the physical exam. Desktop Technician contact information: Please call [facility] . 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 He was advised to go to the ED due to concern for infection. Patient reported the symptoms began several days ago and have been worsening. He said he had been using prescription eyedrops for treatment of dry eye, but per scanned ophthalmology note he was on Systane complete and preservision areds. He had not been started on abx yetophthalmology note prescribed Augmentin if hospital work-up was negative. He denied fevers, chills, or GI complaints. In the ED, temperature was 36.6, heart rate 82, respiratory rate 18, blood pressure 101/65, O2 saturation 97% on room air. Admission labs significant for WBC 16.69, 85.5% neutrophils, hemoglobin 9.1, platelets 134, creatinine 1.63, T. bili 0.7, alk phos 356, AST 126, ALT 150, procalcitonin 0.59, negative COVID RNA. Portable chest x-ray showed no acute disease. CT orbits without intraveno us contrast showed extensive pre and postseptal fat stranding of the orbits, right greater than left concerning for infectious etiologies and chronic pansinusitis. No abscess noted. Patient has been on ceftriaxone, metronidazole, and vancomycin IV. He was noted initially to have improvement, but had continued to intermittently have fever. Orbital CT was repeated 07/08 with IV contrast and showed bilateral orbital cellulitis, likely worsened compared to 07/05 and loculated fluid/phlegmonous change within the medial orbit bilaterally, right greater than left, highly susp icious for bilateral abscess. Patient was accepted for transfer to [facility] for intervention. He is awaiting transfer. He was given PRBC transfusion for drop in hgb without evidence active bleeding. 07/05 blood cultures are no growth to date. 07/08 blood cultures are no growth to date. Patient with temperature of 39.4 yesterday. Pt reports he did not notice any associated symptoms. He states that his eyes have been much better for last few days. Pt reports eyes feel back to how they felt prior to all this happening. States he has no pain or difficulty seeing. Denies abd pain or diarrhea. WBC dropped to 4.12, creatinine has improved to 0.81 AST and ALT have normalized. Allergies Allergy/AdvReac Type Severity Reaction Status Date / Time No Known Allergies Allergy Verified 07/05/22 21:43 Home Medications Medication Instructions Recorded Confirmed Type apixaban 5 mg tablet (Eliquis) 5 mg PO BID 07/05/22 07/05/22 History aspirin 81 mg tablet,delayed 81 mg PO DAILY 07/05/22 07/05/22 History release clindamycin HCl 300 mg capsule 300 mg PO TID 07/05/22 07/05/22 History dexamethasone 4 mg tablet 8 mg PO UD 07/05/22 07/05/22 History fluticasone 250 mcg-salmeterol 50 1 inh inhalation BID 07/05/22 07/05/22 History mcg/dose blistr powdr for inhalation (Wixela Inhub) lisinopril 2.5 mg tablet 2.5 mg PO QAM 07/05/22 07/05/22 History loratadine 10 mg tablet (Claritin) 10 mg PO DAILY 07/05/22 07/05/22 History montelukast 10 mg tablet 10 mg PO HS 07/05/22 07/05/22 History multivitamin 1 tab PO DAILY 07/05/22 07/05/22 History omeprazole 20 mg capsule,delayed 20 mg PO DAILY 07/05/22 07/05/22 History release potassium chloride 20 mEq 20 meq PO DAILY 07/05/22 07/05/22 History tablet,extended release vit C 250 mg-vit E 90 mg-zinc 40 1 tab PO BID 07/05/22 07/05/22 History mg-copper 1 [id number] capsule (PreserVision AREDS-2) atorvastatin 10 mg tablet 5 mg PO HS #15 tabs 07/08/22 Rx lisinopril 5 mg tablet (Zestril) 5 mg PO QAM #30 tabs 07/08/22 Rx Patient History Medical History Cancer History of venous thromboembolism Hypertension Surgical History History of pelvic surgery Family History Other Family history non-contributory Social History Smoking Status: Former smoker Second Hand Exposure: No; Hx Alcohol Use: No Hx Substance Use: No Preferred Language: French Communication Ability: Effective Rotogravure Press Operator Required: No Beliefs That Will Affect Care: None Current Living Situation: Alone Feels Safe at Home: Yes Safety Concerns: Feels Safe At This Time Assistive Devices: Cane, Glasses and Walker Physical Exam Physical Exam: PE: Gen: Awake, alert, NAD HEENT: anicteric, erythema of both upper lids noted, R >L. There is also erythema almost symmetrical below both eyes. EOMI without pain. Sinuses nontender. Poor dentition. Chest: R chest port ok. Resp: no resp distress on RA Abd: Soft, NT/ND Extr: no c/c/e Results & Data Vital Signs (Past 12 Hours) Vital Signs Temp Pulse Pulse Resp BP BP Pulse Ox 07/10/22 15:14 36.8 C 83 18 123/66 99 07/10/22 08:20 07/10/22 11:14 37.0 C 85 18 102/58 L 99 07/10/22 07:42 89 93/54 L 07/10/22 07:00 106 H 07/10/22 05:49 37.0 C 97 H 16 95/53 L 95 07/10/22 03:56 39.4 C H 120 H 18 106/66 94 O2 Del Method 07/10/22 15:14 Room Air 07/10/22 08:20 Room Air 07/10/22 11:14 Room Air 07/10/22 07:42 07/10/22 07:00 07/10/22 05:49 Room Air 07/10/22 03:56 Room Air Laboratory Results 07/08/22 09:26 Aerobic Blood Culture - Preliminary Blood No growth in Aerobic bottle after 48 hours. Anaerobic Blood Culture - Preliminary No growth in Anaerobic bottle after 48 hours. 07/08/22 09:26 Aerobic Blood Culture - Preliminary Blood No growth in Aerobic bottle after 48 hours. Anaerobic Blood Culture - Preliminary No growth in Anaerobic bottle after 48 hours. 07/10/22 07/10/22 05:48 05:48 WBC 4.12 L RBC 2.89 L Hgb 8.5 L Hct 25.5 L MCV 88.2 MCH 29.4 MCHC 33.3 RDW Std Deviation 49.4 H RDW Coeff of Bebe 15.6 H Plt Count 106 L MPV 11.2 Immature Gran % (Auto) 1.0 Neut % (Auto) 86.7 Lymph % (Auto) 4.6 [place] % (Auto) 7.0 Eos % (Auto) 0.2 Baso % (Auto) 0.5 Neut # (Auto) 3.57 Lymph # (Auto) 0.19 L [place] # (Auto) 0.29 Eos # (Auto) 0.01 Baso # (Auto) 0.02 Immature Gran # (Auto) 0.04 Sodium 132 L Potassium 3.3 L Chloride 101 Carbon Dioxide 23 Anion Gap 8 BUN 14 Creatinine 0.81 Est Cr Clr Drug Dosing 68.0 Est GFR ( Amer) 100.1 Est GFR (Non-Af Amer) 86.3 BUN/Creatinine Ratio 17.3 Glucose 110 H Calcium 7.9 L Magnesium 1.4 L Total Bilirubin 0.3 AST 31 ALT 46 Alkaline Phosphatase 207 H Total Protein 5.5 L Albumin 2.8 L Globulin 2.7 Albumin/Globulin Ratio 1.0 Medications Administered Current Medications Acetaminophen (Acetaminophen 325 Mg Tab) 650 mg PO Q4H PRN PRN Reason: Pain or Fever Stop: 08/04/22 23:12 Last Admin: 07/10/22 04:02 Dose: 650 mg Apixaban (Apixaban 5 Mg Tablet) 5 mg PO BID DEBBIE Stop: 08/05/22 08:59 Last Admin: 07/08/22 08:10 Dose: 5 mg Aspirin (Aspirin 81 Mg Ectab) 81 mg PO DAILY DEBBIE Stop: 08/05/22 08:59 Last Admin: 07/10/22 08:19 Dose: 81 mg Atorvastatin Calcium (Atorvastatin 10 Mg Tab) 5 mg PO HS DEBBIE Stop: 08/05/22 20:59 Last Admin: 07/09/22 20:01 Dose: 5 mg Heparin Sodium (Porcine) (Heparin 100 Unit/Ml 5ml Flush) 5 ml FLUSH PRN PRN PRN Reason: Flush Stop: 08/05/22 02:09 Vancomycin HCl 1,000 mg/ (Sodium Chloride) 270 mls @ 200 mls/hr IV Q12H DEBBIE; Protocol Stop: 07/13/22 23:59 Last Infusion: 07/10/22 10:51 Dose: Infused Piperacillin Sod/Tazobactam (Sod 3.375 gm/ Dextrose) 115 mls @ 28.75 mls/hr IV Q8H [facility]; Protocol Stop: 07/20/22 13:59 Last Admin: 07/10/22 14:22 Dose: 28.8 mls/hr Lisinopril (Lisinopril 5 Mg Tab) 5 mg PO QAM [facility] Stop: 08/06/22 09:44 Last Admin: 07/10/22 07:47 Dose: Not Given Loratadine (Loratadine 10 Mg Tab) 10 mg PO DAILY [facility] Stop: 08/05/22 08:59 Last Admin: 07/10/22 08:19 Dose: 10 mg Melatonin (Melatonin 3 Mg Tab) 3 mg PO HS PRN PRN Reason: Sleep Stop: 08/05/22 21:58 Last Admin: 07/09/22 20:12 Dose: 3 mg Miscellaneous Information (Vancomycin Consult Active) 1 each N/A UD PRN PRN Reason: Consult Stop: 08/04/22 23:12 Montelukast Sodium (Montelukast Sodium 10 Mg Tablet) 10 mg PO HS [facility] Stop: 08/05/22 20:59 Last Admin: 07/09/22 20:00 Dose: 10 mg Ondansetron HCl (Ondansetron Inj 2 Mg/Ml 2 Ml Vial) 4 mg IV Q6H PRN PRN Reason: Nausea Stop: 08/04/22 23:12 Pantoprazole Sodium (Pantoprazole 40 Mg Tab) 40 mg PO DAILY [facility] Stop: 08/05/22 08:59 Last Admin: 07/10/22 08:19 Dose: 40 mg
--- NOTE | 2022-07-10 19:20 | Billing Data ---
Date of Service July 10, 2022 Discharge SUmmary Coding Level of Care Code 06020 INP/OBS DISCH >30 MIN
[2022-07-10] MEDS: ATORVASTATIN 10 MG TAB PO SCH (20:26)
[2022-07-10] MEDS: MONTELUKAST SODIUM 10 MG TABLET PO SCH (20:26)
[2022-07-10] MEDS ORDERED: PIPERACILLIN/TAZOBACTAM 4.5 GM in DEXTROSE 5% 100 ML IV SCH (22:00)
== END 2022-07-10 21:38 | disposition short-term general hospital (02) | DRG 871 ==
LOC: ED 15:28 → 2N 21:39 → SUATTDRO 21:39 → 2N 22:45